=== PATIENT | male | born 1950 | race Two or more races ===

== ENCOUNTER 2025-06-06 20:44 | Emergency (ER) | payer OTHER, MEDICAID ==
[~2025-06-06] VITALS: Ht 152.4 cm; Wt 54.4 kg
[2025-06-06 21:27] LABS: PLATELET COUNT (AUTO) 252 K/uL (150-450); RED BLOOD CELL COUNT(AUTO) 4.16 MIL/uL (4.5-6.0); RED CELL DISTRIBUTION WIDTH 18.5 % (11.5-15.0); WHITE BLOOD COUNT (AUTO) 8.1 K/uL (4.3-11.0)
[2025-06-06 21:33] LABS: APPEARANCE,URINE SLIGHTLY CLOUDY (CLEAR); BLOOD, URINE 2+ Ery/uL (NEGATIVE); LEUKOCYTE ESTERASE ,URINE 3+ (NEGATIVE); NITRITE, URINE POSITIVE (NEGATIVE); UGLUCOSE NEGATIVE (NEGATIVE)
[2025-06-06 21:37] LABS: CALCIUM, SERUM 8.9 mg/dL (8.5-10.1); CREATININE 0.7 mg/dL (0.6-1.3); SODIUM SERUM 143 mmol/L (136-145); UREA NITROGEN, BLOOD 24 mg/dL (7-18)
[2025-06-06 21:43] LABS: ASPARTATE AMINOTRANSFERASE 30 U/L (15-37); TOTAL PROTEIN, SERUM 8.0 g/dL (6.4-8.2)
[2025-06-06 21:45] LABS: ADD URINE CULTURE YES; SQUAMOUS EPITHELIAL CELL,UR Few /HPF (None Seen); YEAST,URINE Many /HPF (None Seen)
[2025-06-06] MEDS ORDERED: CEFTRIAXONE 1GM BAG (ER ONLY) 50 ML IV ONE (22:36)
[2025-06-06] MEDS: CEFTRIAXONE 1GM BAG (ER ONLY) 1 GM/50 ML PIGGYBACK IV ONE (22:40)
[2025-06-06] MEDS: ALBUTEROL FS 2.5 MG/0.5 ML VIAL.NEB NEB ONE (22:50)
[2025-06-06] MEDS: IV NS 0.9% 1,000 ML BAG IV ONE (22:56)
[2025-06-06] MEDS ORDERED: ALBUTEROL FS 2.5 MG/0.5 ML VIAL.NEB ONE (22:57)
[2025-06-06 23:04] VITALS: O2SAT 100
[2025-06-06 23:14] VITALS: O2SAT 100
[2025-06-07 02:00] VITALS: BP 111/70; TEMP 98.1; O2SAT 96
== END 2025-06-07 04:20 ==
LOC: ER 20:47 → EDSEX 20:47 → ER 06-07 04:20
DX: N39.0 Urinary tract infection, site not specified (principal); R53.1 Weakness; E11.9 Type 2 diabetes mellitus without complications; I11.9 Hypertensive heart disease without heart failure; R06.02 Shortness of breath; Z88.6 Allergy status to analgesic agent
CPT/HCPCS: 99291; 96365; 93005; 71045; 85025; 80048; 83690; 80076; 81001; 36415; 84484; 83880; 82962; 94640; J0696; 87086-TC